=== PATIENT | male | born 1930 | race Caucasian/White ===

== ENCOUNTER 2018-06-24 20:23 | Observation (INO) | payer OTHER ==
[2018-06-24] MEDS ORDERED: ONDANSETRON DISINTEGRATING 4 MG TAB PO PRN (23:08)
[2018-06-24] MEDS ORDERED: ACETAMINOPHEN 325 MG TAB PO PRN (23:08)
[2018-06-24] MEDS ORDERED: ONDANSETRON 4 MG/2 ML VIAL IVP PRN (23:08)
[2018-06-24] MEDS ORDERED: HYDROCODONE/APAP 5/325 TAB PO PRN (23:08)
[2018-06-24] MEDS ORDERED: IBUPROFEN 200 MG TAB PO PRN (23:08)
[2018-06-24] MEDS ORDERED: oxyCODONE IR 5 MG TAB PO PRN (23:30)
--- NOTE | 2018-06-25 00:45 | PDGENHP ---
History and Physical - Chief Complaint Right hip pain - History of Present Illness Source-patient provides history appears reliable. His daughter is at bedside supplements details. EMR was reviewed and case discussed with accepting hospitalist. HPI-this is a very pleasant 88-year-old woman with a past medical history significant for HTN, gout, chronic joint pain on chronic narcotic therapy, anxiety, PAULINE who presents emergency department today at [place] following a fall at home. Patient reports that he was on the toilet was trying to sit down when his right hip dislocated. Patient reports that he had to crawl on the ground to get to a phone to call EMS. It is estimated that patient may have been on the ground as long as 2 hr. Patient has a known history of right hip dislocation last being on 06/02/2018 for which patient had a reduction in the ER and was discharged back home. Circumstances of that dislocation were similar in that patient was sitting down. He has not had any issues with his left hip. Patient denies any head injury, loss of consciousness or any other injuries. His neck and back and joint pains are at baseline with exception of the right hip. In the emergency department in [place] patient underwent a reduction that was successful. He was placed in a knee immobilizer and his mobility was limited. Patient does live alone. On given the recurrent nature of his dislocations on-call orthopedic surgeon in [place] was contacted however recommended that patient be discharged back home if stable on and have additional follow up on outpatient basis as revisions are not done at their facility. Has patient lives alone and with some debility admission for rehabilitative services was requested however physical therapy was not available over the weekend and therefore was transferred for additional evaluation and treatment. Head additionally, patient reports he has been experiencing intermittent episodes of dyspnea. He denies any chest pain or palpitations. Daughter feels that this could possibly be related to increasing anxiety given patient has had multiple hospital stays in the last several weeks and recurrent hip blood dislocations. Also patient has been having some issues with sleep. He also reports that in January it was suggested that patient was having irregular heartbeats but he states that he has not had any additional cardiac monitoring that he is aware of including a Holter monitor or echocardiogram. Patient has been struggling with a persistent sinus infection that has been responsive to multiple antibiotics. Daughter reports that antibiotic therapy was just recently changed but they cannot recall the name of the medication. Patient denies any fevers or chills. No sore throat however he has noting that chronically as intermittent episodes of a sensation like he can't swallow however bedside swallow eval by RN reported to be normal. History Information - Allergies/Home Medication List Allergies/Adverse Reactions: No Known Allergies Allergy (Unverified 06/24/18 23:08) I have personally reviewed and updated: family history, medical history, social history, surgical history Past Medical History: Home medication list still pending upload into [employer]. Oxy CR 10 mg at HS. Oxycodone IR 10 mg three times daily p.r.n. Lisinopril. Amlodipine. Allopurinol. Clonazepam. [place]. Lyrica. Flexeril. 0 floxacillin. s/p amoxicillin and cefuroxime - Past Medical History Additional medical history: Chronic pain on chronic narcotics PE. Degenerative joint disease, osteoarthritis. Anxiety. Gout. RLS. HTN. History of recurrent right hip dislocation most recently on 06/02/2018 and 06/24/2018 - Surgical History Additional surgical history: Bilateral cataract extraction with lens placement. Bilateral total hip arthroplasty 20s ago. Cholecystectomy. Cervical spine fusion x2. Carpal tunnel release on the right wrist - Family History Additional family history: Father-HTN, CVA, aneurysm. Brother, HTN, diabetes 2 in advanced age. Sister-pancreatic cancer - Social History Smoking Status: Never smoked Alcohol Use: Sober (Patient stopped drinking in 1986) Drug Use: None Additional social history: Patient lives alone in a home in [place]. His daughter lives in [place]. Cor status-full. Patient does not want prolonged life support. Review of Systems Review of Systems: ROS: 10pt was reviewed & negative except for what was stated in HPI & below Constitutional: Denies: chills, fever EENMT: Reports: nose congestion, other (Wears glasses). Denies: blurred vision , double vision, mouth swelling, sore throat, throat swelling Cardiac: Reports: no symptoms, edema (Occasional lower extremity edema). Denies : lightheadedness, palpitations, syncope Respiratory: Reports: shortness of breath (At rest or with exertion). Denies: cough, orthopnea Gastrointestinal: Reports: no symptoms Genitourinary: Reports: no symptoms Muscolosketal: Reports: joint pain, muscle pain, neck pain Skin: Reports: other (Abrasions and contusions to left arm after dragging himself to the phone from the bathroom.) Physical Exam Physical Exam: Temp Pulse Resp BP Pulse Ox 36.6 C 82 16 130/66 H 95 06/24/18 23:27 06/24/18 23:27 06/24/18 23:27 06/24/18 23:27 06/24/18 23:27 Lab Data & Imaging Review Laboratory studies reviewed from [place] CBC - WBC 20.4, H&H 12.0 and 36.8, 2 platelet count 256, MCV 95.0, 70% neutrophils otherwise no bands. Sodium 140, K 3.8, CLL 109, CO2 18, BUN 48, CR 1.5, glucose 104, anion gap 13 CK 812 Imaging Review: Patient arrives with a disc of his three view hip however I am unable to review these at this time based on available equipment. Radiology report notes a posterior dislocated right artificial hip. The left hip arthroplasty is unremarkable. No displaced fractures. EKG additional interpertation: Telemetry monitoring strip reviewed-appears to be is sinus arrhythmia in the 70s. P-waves are occasionally quite small and/or questionable if present. EKG is pending. Assessment & Plan Assessment: this is a very pleasant 88-year-old woman with a past medical history significant for HTN, gout, chronic joint pain on chronic narcotic therapy, anxiety, PAULINE who presents emergency department today at [place] following a fall at home. Patient reports that he was on the toilet was trying to sit down when his right hip dislocated. #Right hip dislocation - patient with recurrent hip dislocations. He has had to this month and per review of records appears that he has had 2 or more in the recent months. Dr. Vázquez notified before patient transfer. Follow-up in a.m.. The per the accepting hospitalist at this time there is no emergent need for surgery and recommendations for physical therapy subsequent outpatient follow-up for possible reconstruction if this is something that the patient would even consider given his advanced age. #Generalized Debility - PT OT as noted above. #Arrhythmia - patient will have a EKG obtained. He does have a arrhythmia on tele. Patient reports a history of occasional arrhythmia but denies any cardiac monitoring or treatment plan. He denies having been diagnosed with atrial fibrillation. #Renal insufficiency - patient's baseline creatinine is unknown however his urine does appear concentrated does appears somewhat dehydrated in his CK slightly elevated. He will receive IV fluids overnight and will plan to repeat a BMP in the morning. Dyspnea - patient without any hypoxia or tachypnea. Lung sounds appear clear. Patient describes an intermittent dyspnea unclear if this may correlate with any sort of arrhythmia or tach hilliard arrhythmia. Will monitor patient on remote tele and additional eval regarding a arrhythmia as noted above. Will avoid nephrotoxin medications at this time. Hold patient's lisinopril and NSAIDs #Elevated CK - not quite sufficient to qualify for rhabdo this will need to be monitored closely with a a.m. CK. Patient will be receiving IV fluid replacement overnight. #Leukocytosis-patient is afebrile. This could be reactive versus related to patient's complaint of persistent sinusitis. Will monitor patient vital signs closely. #Anemia - mildly decreased H&H. Likely chronic but baseline is unknown at this time. Patient without any evidence of active bleeding. Will repeat CBC in the morning. #Dysphagia - patient did describe subjective dysphagia however he passed his bedside swallow eval. Speech therapy consult in the morning. #Persistent sinusitis - resume patient's home medications once family is able to provide list otherwise was pharmacy to follow up with patient's outside pharmacy in [place]. #Insomnia - resume patient's pain medications. P.r.n. Melatonin at this time. Chronic medical issues #Benign essential HTN - blood pressures at this time are adequate. Holding lisinopril as noted above. Consider p.r.n. Agent if needed. #Gout - Patient may require renal dosing for his allopurinol. Repeat BMP as noted above for renal insufficiency. #Chronic pain with chronic narcotic therapy - resume patient's, oxy and oxy CR. He does have a listed history of hospitalization 06/19/2018 listed as opiate poisoning. Will need to monitor patient's mental status very closely in setting of his renal insufficiency. Will try to obtain and review additional records from [facility]. IV fluid replacement as noted above for a acute renal insufficiency. #RLS - patient takes Lyrica at home. Will hold additional medications at this time. #Anxiety - patient home med list noted clonazepam. Given long-acting nature and patient's recent hospital stay for a medication toxicity will hold off unless absolutely necessary. FEN - IV fluids for gentle hydration encourage oral hydration as well. Patient with some report of intermittent dyspnea will monitor for any signs or symptoms of CHF or fluid overload. Electrolyte replacement if needed. Cardiac diet has been ordered. PPX-SCDs. Patient with multiple contusions on his left arm but no evidence of large hematomas or active bleeding. Lovenox if patient should stay additional day. Cor status-full. He does not want prolonged life support or futile resuscitation. Patient's daughter Ana is MD [facility]. Disposition-patient admitted observation status initially pending rehab service evaluation recommendations as well as additional discussion with orthopedics service for clarification as noted above. Additionally daughter has requested that we contact patient's PCP in [place] for which she will plan to give the providers direct contact number in the morning.
[2018-06-25] MEDS: NS 1,000 ML IV SCH ×2 (01:14→14:59)
[2018-06-25] MEDS ORDERED: ENOXAPARIN 40 MG/0.4 ML SYR SC SCH (09:00)
--- NOTE | 2018-06-25 10:20 | ASMTCMCOM ---
CM Note CM Note Notes: Chart reviewed. 88 Year old male s/p dislocation of right hips. He has a history of dislocated hip as well as HTN, gout and chronic joint pain. He lives independent in [place], His daughter, his [employer], number on face sheet is incorrect. CM to follow for needs. Plan: TBD Date Signed: 06/25/2018 10:19 AM Electronically Signed By:Esther Ely RN
[2018-06-25 10:47] LABS: CREATINE KINASE 2958 IU/L (0-224)
[2018-06-25 15:26] LABS: CREATINE KINASE 2407 IU/L (0-224)
--- NOTE | 2018-06-25 15:33 | PDDCSUM ---
Discharge Summary Discharge Summary: Date of Admission: 06/24/2018 Date of Discharge: 06/25/2018 Studies: 1. Pelvic x-ray done at outside facility Discharge Diagnoses: 1. Right prosthetic hip dislocation s/p reduction prior to arriving at this facility, recurrent issue 2. Rhabdomyolysis, improving 3. RADHA, improving 4. Leukocytosis, improving 5. Anemia 6. Sinus arrhythmia 7. Dysphagia 8. Chronic pain on opioids 9. Anxiety 10. HTN Brief Hospital Course: 88yo M with chronic pain on opioids, anxiety on benzos who presented to ED in [place] after dislocating his right prosthetic hip at home while trying to sit on the toilet. This has happened twice recently as well. Successfully reduced in ED up there. Given recurrence, plan was to have him evaluated by PT/ OT but these were not available in the [place] ED so he was transferred to [facility]. Upon arrival here his hip was in place and pain controlled. PT and OT evaluated and cleared him for home with a walker, which he has. He was unable to ambulate for 1-2 hours after hip dislocated at home. His labs demonstrated mild rhabdo and RADHA which were improving with IVF at time of discharge. He also had a leukocytosis which was likely reactive. Lastly, he was complaining of dysphagia. I encouraged him to get this evaluated in the outpatient setting. Medications: Please refer to EMR. I did not write for any prescriptions and did not refill any narcotics. Follow Up Plan: 1. Needs to see orthopedic surgeon for evaluation of his recurrent prosthetic hip dislocations 2. Consider EGD to evaluate dysphagia 3. Recommend weaning off opioids and benzos as able given his age Physical Exam: Vitals reviewed, afebrile and normotensive. Alert and oriented, no focal neuro deficits, RRR without m/r/g, lungs ctab, abdomen soft and nt, abrasions in bilateral arms from crawling, good strength in BLE.
--- NOTE | 2018-06-25 16:04 | ASMTLACE ---
LACE Length of stay for Answers: Less than 1 day current admission # of Emergency department Answers: 1-2 visits in the last 6 months Score: 1 Date Signed: 06/25/2018 04:03 PM Electronically Signed By:Esther Ely RN
[2018-06-25 16:05] VITALS: BP 129/62
--- NOTE | 2018-06-25 16:12 | PDIAF ---
- Diagnosis Code Status: Full Code - Medication Management Discharge Medications: electronically signed and located in the Home Medication List. - Orders Services needed: Home Care, Registered Nurse Home Care Face to Face: I certify that this patient was under my care and that I had the required [id number] encounter meeting the encounter requirements on the discharge day. My findings support the fact that the patient is homebound as defined in Home Care Face to Face Continued: CMS Chapter 7 Medicare Benefits Manual 30.1.1 , The condition of the patient is such that there exists a normal inability to leave home and consequently, leaving home would require a considerable and taxing effort. Additional Instructions: I strongly recommend that you seek out a referral to an orthopedic surgeon close to where to you live. Our therapists are recommending that you use a walker. We have not made any medication changes. - Follow Up Care Current Providers and Referrals: Patient,NotPresent [Primary Care Provider] -
--- NOTE | 2018-06-25 16:53 | ASMTCMCOM ---
CM Note CM Note Notes: Spoke at great length with Daniela the patient's daughter and POA. She and her express fear and genuine concern for the patient's safety and well being. He apparently has a visiting RN through [facility]. He currently lives alone. Per the daughter he has recommended DME at home but does not use it and it is questionable that he is compliant with those. Emotional support provided . They are unable to take him to there home as there are excessive steps. [employer] faxed to [facility] in [facility]. Plan: Dc to home with [facility] and plan orthopedic consultation. Date Signed: 06/25/2018 04:52 PM Electronically Signed By:Esther Ely RN
--- NOTE | 2018-06-26 08:24 | CPEKG ---
Test Reason : OPEN Blood Pressure : / mmHG Vent. Rate : 092 BPM Atrial Rate : 148 BPM P-R Int : 179 ms QRS Dur : 064 ms QT Int : 432 ms P-R-T Axes : 088 033 000 degrees QTc Int : 535 ms Atrial flutter premature ventricular complexes Abnormal R-wave progression, early transition Nonspecific T abnormalities, lateral leads Prolonged QT interval Moderate artifact Confirmed by Robbin Castillo ([id number]) on 06/26/2018 8:24:05 AM Referred By: Confirmed By:Robbin Castillo
--- NOTE | 2018-06-26 08:25 | CPEKG ---
Test Reason : OPEN Blood Pressure : / mmHG Vent. Rate : 067 BPM Atrial Rate : 068 BPM P-R Int : 183 ms QRS Dur : 079 ms QT Int : 379 ms P-R-T Axes : 044 039 021 degrees QTc Int : 400 ms Sinus rhythm Atrial premature complex Abnormal R-wave progression, early transition Borderline T abnormalities, anterior leads Confirmed by Robbin Castillo ([id number]) on 06/26/2018 8:24:39 AM Referred By: Confirmed By:Robbin Castillo
== END 2018-06-25 17:00 | disposition home health service (06) ==
LOC: F3N 22:56
PROVIDERS: ADMIT Internal Medicine; ATTEND Internal Medicine
DX: T84.020A Dislocation of internal right hip prosthesis, initial encounter (principal); S40.812A Abrasion of left upper arm, initial encounter; X58.XXXA Exposure to other specified factors, initial encounter; M62.82 Rhabdomyolysis; N17.9 Acute kidney failure, unspecified; D64.9 Anemia, unspecified; R13.10 Dysphagia, unspecified; F41.9 Anxiety disorder, unspecified; I49.9 Cardiac arrhythmia, unspecified; I10 Essential (primary) hypertension; F11.20 Opioid dependence, uncomplicated; G89.29 Other chronic pain; Y92.009 Unspecified place in unspecified non-institutional (private) residence as the place of occurrence of the external cause; Y93.89 Activity, other specified; G47.00 Insomnia, unspecified
CPT/HCPCS: 93005; 97116; 97161; 97165; G0378; G8978; G8979; G8980; G8987; G8988; J1650

== ENCOUNTER 2018-12-06 04:41 | Observation (INO) | payer OTHER | END 2018-12-08 15:30 | disposition home or self-care (01) | LOC: F2W 06:58 ==